=== PATIENT | female | born 1990 | race African-American/Black ===

== ENCOUNTER 2020-04-11 07:59 | Inpatient (IN) ==
[2020-04-11] MEDS ORDERED: CITRIC ACID/SODIUM CITRATE 30 ML UDCUP PO ONE (08:02)
[2020-04-11] MEDS ORDERED: FAMOTIDINE 20 MG/2 ML VIAL IV ONE (08:02)
[2020-04-11] MEDS ORDERED: ceFAZolin 2,000 MG in PREMIX 1 EACH IV ONE (08:02)
[2020-04-11] MEDS ORDERED: CITRIC ACID/SODIUM CITRATE 30 ML UDCUP ONE (08:05)
[2020-04-11] MEDS ORDERED: OXYTOCIN 10 UNIT/ML VIAL ONE (08:05)
[2020-04-11] MEDS ORDERED: OXYTOCIN/LR 30 UNIT/1,000 ML BAG IV ONE (08:06)
[2020-04-11] MEDS ORDERED: OXYTOCIN 10 UNIT/ML VIAL IM ONE (08:06)
[2020-04-11 08:48] LABS: Basophils % 0.1 % (0.0-0.8); Eosinophils % 0.1 % (0.00-10.9); Hematocrit 19.7 VOL% (35.7-47.0); Immature Granulocytes % 1.9 %; Immature Granulocytes Absolute 0.36 #; Lymphocytes # 2.5 10*3/uL (1.4-4.0); Lymphocytes % 13.4 % (21.3-54.2); Mean Corpuscular Volume 91.6 FL (87-102); Mean Platelet Volume 8.4 FL (9.6-12.0); Neutrophils % 77.5 % (38.7-73.9); Platelet Count 109 T/CUMM (130-400); Red Blood Count 2.15 MC/CUMM (3.8-5.5); Red Cell Distribution Width 14.7 % (9.3-17.3); White Blood Count 18.6 T/CUMM (4-12)
[2020-04-11 08:53] LABS: Hemoglobin 6.3 GM/DL (12.0-16.0)
[2020-04-11] MEDS ORDERED: SODIUM CHLORIDE 0.9% 1,000 ML IV PRN ×8 (08:53→18:24)
[2020-04-11 09:05] LABS: Albumin 2.5 G/DL (3.4-5.0); Bilirubin,Total 0.7 MG/DL (0.2-1.0); Calcium 8.3 MG/DL (8.5-10.1); Osmolality,Calculated 276.5 MOS/KG (273-304)
[2020-04-11 09:12] LABS: Apearance,Urine CLOUDY (Clear); Bilirubin,Urine Negative (Negative); Blood, Urine Negative (Negative); Glucose,Urine (UA) 50 mg/dL (Negative); Ketones,Urine Negative (Negative); Mucus,Urine Few /LPF (Occasional); Nitrite,Urine Negative (Negative); Protein,Urine >=500 MG/DL; RBC,Urine 15 /HPF (0-4); Squamous Epithelial Cell,Urine Occasional /HPF (0-10); Urine Color Amber (Yellow); Urine Specific Gravity 1.024 (1.001-1.035); Urine Urobilinogen < 2.0 EU/DL (0.2-1.0); WBC,Urine 6 /HPF (0-6)
[2020-04-11 09:21] LABS: Hypochromasia 2+; Microcytosis 1+; Platelet Estimate Decreased
[2020-04-11] MEDS ORDERED: METHYLERGONOVINE 0.2 MG/1 ML AMP IM ONE ×2 (09:35→10:38)
[2020-04-11] MEDS ORDERED: METHYLERGONOVINE 0.2 MG/1 ML AMP ONE ×2 (09:35→10:52)
[2020-04-11] MEDS ORDERED: TRANEXAMIC ACID 1,000 MG/10 ML VIAL ONE (09:56)
[2020-04-11] MEDS ORDERED: FUROSEMIDE 40 MG/4 ML VIAL IV SCH (10:00)
[2020-04-11] MEDS ORDERED: ONDANSETRON 4 MG/2 ML VIAL IV PRN (10:49)
[2020-04-11] MEDS ORDERED: RHO(D) IMMUNE GLOBULIN 300 MCG SYRINGE IM ONE (10:49)
[2020-04-11] MEDS ORDERED: ACETAMINOPHEN 325 MG TABLET PO PRN (10:49)
[2020-04-11] MEDS ORDERED: MAGNESIUM HYDROXIDE SUSP 30 ML UDCUP PO PRN (10:49)
[2020-04-11] MEDS ORDERED: SIMETHICONE CHEW 80 MG TABLET PO PRN (10:49)
[2020-04-11] MEDS ORDERED: OXYTOCIN/LR 20 UNIT/1,000 ML BAG IV ONE (10:49)
[2020-04-11] MEDS ORDERED: MEPERIDINE 50 MG/1 ML VIAL ONE (11:30)
[2020-04-11] MEDS ORDERED: MEPERIDINE 50 MG/1 ML VIAL IV ONE (11:31)
[2020-04-11] MEDS ORDERED: fentaNYL 100 MCG/2 ML VIAL ONE (12:45)
[2020-04-11] MEDS ORDERED: PHENYLEPHRINE 1 MG/10 ML SYRINGE IV ONE (12:45)
[2020-04-11] MEDS ORDERED: propofoL 200 MG/20 ML VIAL IV ONE (12:46)
[2020-04-11] MEDS ORDERED: KETOROLAC 30 MG/1 ML VIAL ONE (12:46)
[2020-04-11] MEDS ORDERED: DEXAMETHASONE 4 MG/1 ML VIAL ONE (12:46)
[2020-04-11] MEDS ORDERED: MIDAZOLAM 2 MG/2 ML VIAL ONE (12:46)
[2020-04-11] MEDS ORDERED: SUCCINYLCHOLINE 200 MG/10 ML VIAL ONE (12:47)
[2020-04-11] MEDS ORDERED: SEVOFLURANE 1 UNIT/15 MINUTE INH ONE (12:47)
[2020-04-11 12:54] LABS: Barbiturates Screen,Urine Negative (Negative); Benzodiazepines Screen,Urine Negative (Negative); Cannabinoid Screen,Urine Positive (Negative); Opiate Screen,Urine Negative (Negative); Phencyclidine Screen,Urine Negative (Negative)
[2020-04-11 13:00] LABS: Hematocrit 28.2 VOL% (35.7-47.0)
[2020-04-11] MEDS: PROMETHAZINE 25 MG/1 ML VIAL IM PRN (16:16)
[2020-04-11] MEDS: MEPERIDINE 50 MG/1 ML VIAL IV PRN (16:18)
[2020-04-11 18:14] LABS: INR 1.1; PT Patient Result 11.4 SECS (9.8-11.9); Partial Thromboplastin Time 25.8 SECS (23.9-33.8)
[2020-04-11 18:25] LABS: Albumin 1.9 G/DL (3.4-5.0); Bilirubin,Direct 0.19 MG/DL (0.0-0.20); Bilirubin,Total 0.4 MG/DL (0.2-1.0); Calcium 7.6 MG/DL (8.5-10.1); Osmolality,Calculated 275.5 MOS/KG (273-304); Total Protein 4.5 G/DL (6.4-8.3)
[2020-04-11] MEDS: ceFAZolin 1,000 MG in SYRINGE 1 EACH IV SCH (19:03)
[2020-04-11] MEDS ORDERED: FUROSEMIDE 40 MG/4 ML VIAL IV ONE (21:00)
[2020-04-11] MEDS: IBUPROFEN 800 MG TABLET PO PRN (22:43)
[2020-04-12 00:37] LABS: Basophils % 0.2 % (0.0-0.8); Hematocrit 23.7 VOL% (35.7-47.0); Hemoglobin 7.9 GM/DL (12.0-16.0); Immature Granulocytes % 2.4 %; Immature Granulocytes Absolute 0.58 #; Lymphocytes # 3.6 10*3/uL (1.4-4.0); Lymphocytes % 14.8 % (21.3-54.2); Mean Corpuscular HGB Conc 33.3 GM/DL (32-36); Mean Corpuscular Volume 92.2 FL (87-102); Mean Platelet Volume 11.5 FL (9.6-12.0); Monocytes % 7.9 % (1.7-12.7); Neutrophils % 74.7 % (38.7-73.9); Red Blood Count 2.57 MC/CUMM (3.8-5.5); Red Cell Distribution Width 14.6 % (9.3-17.3); White Blood Count 24.1 T/CUMM (4-12)
[2020-04-12 00:46] LABS: Platelet Count 35 T/CUMM (130-400)
[2020-04-12] MEDS ORDERED: SODIUM CHLORIDE 0.9% 1,000 ML IV PRN ×5 (00:53→17:00)
[2020-04-12 02:05] LABS: Anisocytosis 1+
[2020-04-12 02:06] LABS: Platelet Estimate Decreased
[2020-04-12] MEDS ORDERED: ceFAZolin 1,000 MG in SYRINGE 1 EACH IV SCH (03:00)
[2020-04-12 06:04] LABS: Basophils % 0.1 % (0.0-0.8); Hematocrit 21.7 VOL% (35.7-47.0); Hemoglobin 7.3 GM/DL (12.0-16.0); Immature Granulocytes % 0.9 %; Immature Granulocytes Absolute 0.14 #; Lymphocytes # 1.8 10*3/uL (1.4-4.0); Lymphocytes % 11.1 % (21.3-54.2); Mean Corpuscular HGB Conc 33.6 GM/DL (32-36); Mean Platelet Volume 11.7 FL (9.6-12.0); Monocytes % 6.4 % (1.7-12.7); Neutrophils % 81.5 % (38.7-73.9); Red Blood Count 2.41 MC/CUMM (3.8-5.5); Red Cell Distribution Width 14.4 % (9.3-17.3); White Blood Count 16.4 T/CUMM (4-12)
[2020-04-12] MEDS ORDERED: FUROSEMIDE 40 MG/4 ML VIAL IV ONE (06:06)
[2020-04-12 06:07] LABS: Platelet Count 27 T/CUMM (130-400)
[2020-04-12 06:33] LABS: Hypochromasia 1+; Lymphocytes 12 % (20-55); Microcytosis Slight; Platelet Estimate Decreased; Segmented Neutrophils 87 % (50-85); Total Cells Counted 100
[2020-04-12 07:48] LABS: Basophils % 0.1 % (0.0-0.8); Hematocrit 22.9 VOL% (35.7-47.0); Hemoglobin 7.9 GM/DL (12.0-16.0); Immature Granulocytes % 0.8 %; Immature Granulocytes Absolute 0.13 #; Lymphocytes # 1.6 10*3/uL (1.4-4.0); Lymphocytes % 9.9 % (21.3-54.2); Mean Corpuscular HGB Conc 34.5 GM/DL (32-36); Mean Corpuscular Volume 88.4 FL (87-102); Mean Platelet Volume 10.6 FL (9.6-12.0); Monocytes % 6.2 % (1.7-12.7); Red Blood Count 2.59 MC/CUMM (3.8-5.5); Red Cell Distribution Width 14.5 % (9.3-17.3); White Blood Count 15.8 T/CUMM (4-12)
[2020-04-12 07:51] LABS: Platelet Count 34 T/CUMM (130-400)
[2020-04-12 07:53] LABS: INR 0.9; Partial Thromboplastin Time 26.1 SECS (23.9-33.8)
[2020-04-12] MEDS ORDERED: PROMETHAZINE 25 MG/1 ML VIAL IM PRN (08:00)
[2020-04-12 08:05] LABS: Hypochromasia 2+; Microcytosis 1+; Platelet Estimate Decreased
[2020-04-12 08:10] LABS: Osmolality,Calculated 271.7 MOS/KG (273-304)
[2020-04-12 08:13] LABS: % Iron Saturation 17.4 % (18-50); Ferritin 29.2 ng/ml (8-252)
[2020-04-12] MEDS ORDERED: methylPREDNISolone SOD SUC 125 MG/2 ML VIAL IV ONE (08:13)
[2020-04-12] MEDS: MEPERIDINE 50 MG/1 ML VIAL IV PRN ×2 (08:15→20:33)
[2020-04-12] MEDS: PROMETHAZINE 25 MG/1 ML VIAL IM PRN (08:20)
[2020-04-12 10:07] LABS: Basophils % 0.2 % (0.0-0.8); Eosinophils % 0.1 % (0.00-10.9); Hematocrit 21.8 VOL% (35.7-47.0); Hemoglobin 7.4 GM/DL (12.0-16.0); Immature Granulocytes Absolute 0.17 #; Lymphocytes % 11.5 % (21.3-54.2); Mean Corpuscular HGB Conc 33.9 GM/DL (32-36); Mean Corpuscular Volume 89.7 FL (87-102); Mean Platelet Volume 10.9 FL (9.6-12.0); Monocytes % 7.5 % (1.7-12.7); Neutrophils % 79.7 % (38.7-73.9); Red Blood Count 2.43 MC/CUMM (3.8-5.5); Red Cell Distribution Width 14.4 % (9.3-17.3); White Blood Count 17.1 T/CUMM (4-12)
[2020-04-12 10:09] LABS: Platelet Count 35 T/CUMM (130-400)
[2020-04-12 10:31] LABS: Hypochromasia 2+; Lymphocytes 10 % (20-55); Microcytosis 1+; Platelet Estimate Decreased; Segmented Neutrophils 84 % (50-85); Total Cells Counted 100
[2020-04-12] MEDS: LACTATED RINGERS 1,000 ML IV SCH ×4 (12:44→20:17)
[2020-04-12] MEDS: DOCUSATE SODIUM 100 MG CAPSULE PO SCH ×3 (12:52→20:33)
[2020-04-12] MEDS: MULTIVITAMIN (PRENATAL) TABLET PO SCH (12:52)
[2020-04-12] MEDS ORDERED: CALCIUM GLUCONATE 2,000 MG in SODIUM CHLORIDE 0.9% 100 ML IV ONE (13:00)
[2020-04-12 16:55] LABS: Basophils % 0.1 % (0.0-0.8); Hematocrit 20.7 VOL% (35.7-47.0); Hemoglobin 6.9 GM/DL (12.0-16.0); Lymphocytes # 1.1 10*3/uL (1.4-4.0); Lymphocytes % 5.8 % (21.3-54.2); Mean Corpuscular HGB Conc 33.3 GM/DL (32-36); Mean Corpuscular Volume 92.8 FL (87-102); Mean Platelet Volume 10.5 FL (9.6-12.0); Monocytes % 1.9 % (1.7-12.7); Neutrophils % 91.2 % (38.7-73.9); Red Blood Count 2.23 MC/CUMM (3.8-5.5); Red Cell Distribution Width 14.6 % (9.3-17.3)
[2020-04-12 16:56] LABS: Immature Granulocytes Absolute 0.18 #
[2020-04-12 16:57] LABS: Platelet Count 43 T/CUMM (130-400)
[2020-04-12] MEDS: ceFAZolin 1,000 MG in SYRINGE 1 EACH IV SCH (19:38)
[2020-04-12 19:44] LABS: Band Neutrophils 1 % (0-10); Lymphocytes 3 % (20-55); Segmented Neutrophils 96 % (50-85); Total Cells Counted 100
[2020-04-12 19:45] LABS: Anisocytosis 1+; Macrocytosis 1+; Microcytosis 1+; Platelet Estimate Decreased
[2020-04-12 19:46] LABS: Hypochromasia Slight
[2020-04-13] MEDS: LACTATED RINGERS 1,000 ML IV SCH ×2 (00:11→08:28)
[2020-04-13 03:57] LABS: Basophils % 0.1 % (0.0-0.8); Hematocrit 24.1 VOL% (35.7-47.0); Hemoglobin 8.1 GM/DL (12.0-16.0); Immature Granulocytes % 1.1 %; Lymphocytes % 10.7 % (21.3-54.2); Mean Corpuscular HGB Conc 33.6 GM/DL (32-36); Mean Corpuscular Volume 91.6 FL (87-102); Mean Platelet Volume 10.8 FL (9.6-12.0); Monocytes % 7.8 % (1.7-12.7); Neutrophils % 80.3 % (38.7-73.9); Red Blood Count 2.63 MC/CUMM (3.8-5.5); Red Cell Distribution Width 14.4 % (9.3-17.3)
[2020-04-13 04:11] LABS: INR 0.9; PT Patient Result 9.5 SECS (9.8-11.9)
[2020-04-13 04:19] LABS: Platelet Count 47 T/CUMM (130-400)
[2020-04-13 04:28] LABS: Hypochromasia 1+; Microcytosis Slight; Platelet Estimate Decreased
[2020-04-13] MEDS: DOCUSATE SODIUM 100 MG CAPSULE PO SCH ×2 (08:45→20:01)
[2020-04-13] MEDS: MULTIVITAMIN (PRENATAL) TABLET PO SCH (08:45)
[2020-04-13 09:44] LABS: Calcium 8.6 MG/DL (8.5-10.1); Osmolality,Calculated 270.7 MOS/KG (273-304)
[2020-04-13 12:04] LABS: Basophils % 0.2 % (0.0-0.8); Eosinophils % 0.2 % (0.00-10.9); Hematocrit 25.2 VOL% (35.7-47.0); Hemoglobin 8.2 GM/DL (12.0-16.0); Immature Granulocytes % 0.8 %; Immature Granulocytes Absolute 0.14 #; Lymphocytes # 3.4 10*3/uL (1.4-4.0); Lymphocytes % 19.4 % (21.3-54.2); Mean Corpuscular HGB Conc 32.5 GM/DL (32-36); Mean Corpuscular Volume 92.6 FL (87-102); Mean Platelet Volume 10.5 FL (9.6-12.0); Monocytes % 8.1 % (1.7-12.7); NRBC # 0.02 10*3/uL; Neutrophils % 71.3 % (38.7-73.9); Platelet Count 57 T/CUMM (130-400); Red Blood Count 2.72 MC/CUMM (3.8-5.5); Red Cell Distribution Width 14.6 % (9.3-17.3); White Blood Count 17.3 T/CUMM (4-12)
[2020-04-13 12:22] LABS: Band Neutrophils 2 % (0-10); Hypochromasia 1+; Lymphocytes 15 % (20-55); Microcytosis 1+; Polychromasia Slight; Segmented Neutrophils 81 % (50-85); Total Cells Counted 100
[2020-04-13 12:23] LABS: Atypical Lymphocytes Few; Platelet Estimate Decreased
[2020-04-13] MEDS ORDERED: METOCLOPRAMIDE 10 MG TABLET PO PRN (13:44)
[2020-04-13] MEDS: IBUPROFEN 800 MG TABLET PO PRN (16:00)
[2020-04-13] MEDS ORDERED: BISACODYL 10 MG SUPP RECTAL PRN (19:49)
[2020-04-13] MEDS: FERROUS SULFATE 325 MG TABLET PO SCH (20:01)
[2020-04-13] MEDS ORDERED: ALUMINUM/MAGNES/SIMETH MAX STR 30 ML UDCUP PO PRN (22:02)
[2020-04-14] MEDS: IBUPROFEN 800 MG TABLET PO PRN (03:51)
[2020-04-14 06:30] LABS: Basophils % 0.3 % (0.0-0.8); Eosinophils # 0.1 10*3/uL (0.0-0.87); Eosinophils % 1.1 % (0.00-10.9); Hematocrit 25.7 VOL% (35.7-47.0); Hemoglobin 8.4 GM/DL (12.0-16.0); Immature Granulocytes % 0.8 %; Immature Granulocytes Absolute 0.09 #; Lymphocytes # 3.6 10*3/uL (1.4-4.0); Lymphocytes % 30.5 % (21.3-54.2); Mean Corpuscular HGB Conc 32.7 GM/DL (32-36); Mean Corpuscular Volume 94.8 FL (87-102); Mean Platelet Volume 9.9 FL (9.6-12.0); Monocytes % 6.6 % (1.7-12.7); NRBC # 0.03 10*3/uL; Neutrophils % 60.7 % (38.7-73.9); Platelet Count 84 T/CUMM (130-400); Red Blood Count 2.71 MC/CUMM (3.8-5.5); Red Cell Distribution Width 14.5 % (9.3-17.3); White Blood Count 11.9 T/CUMM (4-12)
[2020-04-14 06:37] LABS: INR 0.8; PT Patient Result 9.1 SECS (9.8-11.9); Partial Thromboplastin Time 25.7 SECS (23.9-33.8)
[2020-04-14 06:55] LABS: Anisocytosis 1+; Band Neutrophils 1 % (0-10); Eosinophils 1 % (0-10); Lymphocytes 25 % (20-55); Microcytosis 1+; Polychromasia Slight; Segmented Neutrophils 66 % (50-85); Total Cells Counted 100
[2020-04-14 06:56] LABS: Platelet Estimate Decreased
[2020-04-14 07:10] LABS: Calcium 8.3 MG/DL (8.5-10.1); Osmolality,Calculated 277.3 MOS/KG (273-304)
[2020-04-14 07:53] VITALS: BP 139/73
[2020-04-14] MEDS: FERROUS SULFATE 325 MG TABLET PO SCH (08:58)
[2020-04-14] MEDS: MULTIVITAMIN (PRENATAL) TABLET PO SCH (08:58)
[2020-04-14] MEDS: DOCUSATE SODIUM 100 MG CAPSULE PO SCH (09:01)
[2020-04-14] MEDS ORDERED: DIPH/TET/ACEL PERT BOOSTER VACCINE 0.5 ML VIAL IM ONE (10:14)
== END 2020-04-14 10:30 | disposition home or self-care (01) | DRG 540 ==
LOC: N.LDOUT 07:59 → N.LD 07:59 → N.ICU 04-12 06:57 → N.OB 04-13 13:20
PROVIDERS: ADMIT Obstetrics & Gynecology; ATTEND Obstetrics & Gynecology
PROC: LDCSECT (ICD-10-PCS; 2020-04-11 08:30)